=== PATIENT | female | born 1980 | race Caucasian/White ===

== ENCOUNTER 2017-08-08 22:00 | Emergency (ER) | payer OTHER ==
[~2017-08-08] VITALS: Ht 180.3 cm; Wt 74.8 kg
[2017-08-08 22:32] VITALS: BP 110/65
--- NOTE | 2017-08-08 22:55 | RAD ---
CT HEAD WO CONTRAST dated 08/08/2017 10:29 PM Indication: Pain, injuryhead injury yesterday, no priors. Comparison: No comparison is available. Technique: Contiguous axial imaging the head was performed from skull base to vertex. One or more of the following individualized dose reduction techniques were utilized for this examination: 1. Automated exposure control 2. Adjustment of the mA and/or kV according to patient size 3. Use of iterative reconstruction technique Findings: Ventricles and sulci are within normal limits for age. No midline shift or mass effect. Brain parenchyma is of normal attenuation. No hemorrhage or extra-axial collection. Posterior fossa and brainstem unremarkable. Prominent pineal calcification. Visualized paranasal sinuses and mastoid air cells are clear. No apparent calvarial abnormality. IMPRESSION: No evidence of acute intracranial abnormality. Electronically signed by: Madhav Jiang MD (08/08/2017 10:52 PM) [facility]
[2017-08-08] MEDS ORDERED: IBUP-1007 PO (23:06)
--- NOTE | 2017-08-08 23:07 | PHYS DOC ---
Past Medical History Past Medical History: No Pertinent History Past Surgical History: , Tubal ligation Additional Information: 09/26 PPD Alcohol Use: None Drug Use: None Adult General Chief Complaint Chief Complaint: HEAD INJURY/TRAUMA HPI HPI Patient is a 37 year old female who presents here today secondary to head injury that she sustained yesterday. Patient reports that she bent over to parts picker a cup and on her way up to her head on edge of a garage door. Patient has a loss of consciousness. Patient reports that she's been having headaches with nausea and vomiting 2 episodes. Patient denies any history of hypertension diabetes liver longer kidney problems. Patient reports she smokes but does not drink or do any drugs. Patient is allergic to any medications. Patient has any double vision or blurred vision. Patient has any fevers shakes chills cough cold runny nose. Review of systems: Constitutional: Denies fever or chills Eyes: Denies change in visual acuity, redness, or eye pain HENT: Denies nasal congestion or sore throat All other systems were reviewed and found to be within normal limits, except as documented in this note. Physical exam: Constitutional: Well developed, well nourished, no acute distress, non-toxic appearance. HENT: Normocephalic, atraumatic, bilateral external ears normal, less than quarter centimeter abrasion to right temporoparietal region. Positive soft tissue swelling. Eyes: PERRLA, EOMI, conjunctiva normal, no discharge. Neck: Normal range of motion, no tenderness, supple, no stridor. Cardiovascular:Heart rate regular rhythm Lungs & Thorax: Bilateral breath sounds clear to auscultation Abdomen: Bowel sounds normal, soft, no tenderness, no masses, no pulsatile masses. Skin: Warm, dry, no erythema, no rash. Back: No tenderness, no CVA tenderness. Extremities: No tenderness, no cyanosis, no clubbing, ROM intact, no edema. Neurologic: Alert and oriented X 3, normal motor function, normal sensory function, no focal deficits noted. Psychologic: Affect normal, judgement normal, mood normal. Assessment and plan: CT head: No evidence of acute pathology. No bleed or hemorrhage. Interpreted by radiologist reviewed by ER physician 37-year-old female who presents here today with head trauma. Patient's ER workup has been unremarkable. Patient has CT scan of her head which did not reveal any acute pathology. Patient does have tenderness to palpation to her scalp. Patient be discharged home with Motrin/Tylenol as needed for pain. Patient's tetanus status up-to-date. Allergies Allergies Allergies Coded Allergies Type Severity Reaction Last Updated Verified No Known Drug Allergies 08/08/17 No Current Patient Data Vital Signs Vital Signs Date Time Temp Pulse Resp B/P (MAP) Pulse Ox O2 Delivery O2 Flow Rate FiO2 08/08/17 22:32 98.1 64 16 110/65 (80) 99 Room Air 98.1 Lab Values Laboratory Tests Test 08/08/17 22:46 POC Urine HCG, Qualitative Hcg negative (Negative) EKG EKG [] Radiology/Procedures Radiology/Procedures [] Course & Med Decision Making Course & Med Decision Making Pertinent Labs and Imaging studies reviewed. (See chart for details) [] Dragon Disclaimer Dragon Disclaimer This electronic medical record was generated, in whole or in part, using a voice recognition dictation system. Departure Departure Impression: Primary Impression: Head trauma Additional Impression: Concussion Disposition: 01 HOME, SELF-CARE Condition: IMPROVED Referrals: NO PCP (PCP) Patient Instructions: Concussion and Brain Injury, Head Injury, Adult Scripts Ibuprofen (IBUPROFEN) 600 Mg Tablet 600 MG PO PRN Q6HRS Y for PAIN, #20 TAB Prov: KELVIN SERNA MD 08/08/17 Problem Qualifiers Additional Impression: Concussion Encounter type: initial encounter Loss of consciousness presence/duration: without LOC Qualified Codes: S06.0X0A - Concussion without loss of consciousness, initial encounter KELVIN SERNA MD Aug 08, 2017 23:07
[2017-08-08] MEDS ORDERED: IBUPROFEN 600 MG TABLET. PO ONE (23:30)
== END 2017-08-08 23:25 | disposition home or self-care (01) ==
LOC: ER 22:00
DX: S06.0X0A Concussion without loss of consciousness, initial encounter (principal); F17.200 Nicotine dependence, unspecified, uncomplicated; W22.8XXA Striking against or struck by other objects, initial encounter; Y93.89 Activity, other specified; Y99.8 Other external cause status; Y92.89 Other specified places as the place of occurrence of the external cause
CPT/HCPCS: 70450; 81025; 99284-25